=== PATIENT | female | born 1940 | race Caucasian/White ===

== ENCOUNTER 2016-03-17 06:30 | Day surgery (SDC) | payer MEDICARE ==
[~2016-03-17] VITALS: Ht 170.2 cm; Wt 91.4 kg
[~2016-03-17 06:30] MED LIST: CALC-140 PO; FLUT16SP NS; INSU100V7 SUBQ; LABE300T PO; LEVO75TA36 PO; LIP40 PO; NITR1PAT5 TD; UBID1CAP59 PO; VITA400C64 PO; ZYL100 PO; [UNRECOGNIZED DRUG - CODE] PO; vitamin c
[2016-03-17] MEDS ORDERED: Propofol 10,000 mCg/mL 20 mL Inj ONE (06:31)
[2016-03-17] MEDS ORDERED: fentaNYL-PF 50 mCg/mL 2 mL Inj ONE (06:31)
[2016-03-17 07:08] VITALS: BP 155/66; PULSE 64; RESP 16; O2SAT 97
[2016-03-17] MEDS: Lactated Ringer's 1,000 ML IV SCH ×2 (07:30→08:00)
[2016-03-17] MEDS ORDERED: HYDROcodone-APAP 5-325 mg Tablet PO PRN (08:30)
--- NOTE | 2016-03-17 08:50 | PCM.HPANE ---
Patient Data Surgeon Admitting Provider: Attending Provider:Zeferino Wahl DO Primary Care Physician:Oneil Arredondo MD Other Provider:Dick Florian Anesthesia Reason for Visit Left Carpal Tunnel Syndrome Ht/WT & BMI Height (Feet): 5 Height (Inches): 7 Weight (Kilograms): 91.4 Body Mass Index 31.00 Allergies Coded Allergies: JORI Inhibitors (Verified Allergy, Unknown, 12/08/14) aspirin (Verified Adverse Reaction, Intermediate, GI sensative, 12/08/14) Past Anesthesia History Anesthesia History: Denies:: Abnormal Airway, Anesthesia Reactions, Difficult Intubation, Fam Anesthesia Reaction Diabetes History Hx Diabetes?: Yes Type of Diabetes: Type II Glycemic Control: Insulin Dependent Current Bedside Blood Glucose: 213 MRSA MRSA: No Medications Hypertension Medication: Yes Home Meds Incl Beta Teresita: Yes Date Beta Teresita Taken: Mar 17, 2016 Time Beta Teresita Taken: 529 Reported Medications Vitamin E Mixed (Vitamin E)400 Unit Vfxvwnq961 Unit PO DAILY 30 Days 03/15/16 [vitamin c] No Conflict CheckUnknown Dose DAILY 03/15/16 Nitroglycerin (Nitro-Dur)1 Each Patch.td241 Each TD DAILY remove at night 03/15/16 Levothyroxine (Levoxyl)75 Mcg [place]29 Mcg PO DAILY Ref 0 03/15/16 Insulin Glargine (Lantus U100 Insulin Vial)100 Unit/Ml Vial50 Unit SUBQ BID #1 VIAL Ref 0 03/15/16 Labetalol 300 Mg Jiwwwp067 Mg PO BID 03/15/16 Fluticasone Propionate (Fluticasone Propionate Nasal)16 Gm Davis.susp2 Davis NS DAILY #16 GM Ref 0 03/15/16 [place]-3/Dha/Epa/Fish Oil (Fish Oil 1,000 mg Softgel)1,000 Mg (120 Mg-180 Mg) Capsule1,000 Mg PO DAILY 03/15/16 Ubidecarenone/Vitamin E Mixed (Xht10-Gkr E 200 mg-20 Unit Sfg)200 Mg-20 Unit Capsule2 Each PO DAILY 03/15/16 Calcium Carbonate/Vitamin D3 (Calcium + Vitamin D Tablet)1 Each Tablet1 Each PO DAILY 03/15/16 Allopurinol 100 Mg Vurxrb756 Mg PO DAILY Ref 0 03/15/16 Discontinued Reported Medications Atorvastatin (Lipitor)40 Mg Lgshwi11 Mg PO DAILY Ref 0 03/15/16 Fluticasone Propionate (Fluticasone Propionate Nasal)16 Gm Davis.susp2 Davis NS BID PRN For Congestion #16 GM Ref 0 11/27/15 Atorvastatin (Lipitor)40 Mg Uwfvro23 Mg PO DAILY Ref 0 11/27/15 Nitroglycerin (Nitro-Dur)1 Ea Patch1 Ea TD DAILY 12/05/14 Labetalol 300 Mg Rebats625 Mg PO BID 12/05/14 Calcium Citrate/Vitamin D3 (Calcium Citrate with D Tablet)1 Each Tablet1 Each PO DAILY 12/05/14 Ascorbic Acid (Vitamin C)1,000 Mg Tab.chew1,000 Mg PO DAILY #30 TABLET Ref 0 06/24/14 Vitamin E Acetate (Vitamin E)400 Unit Kjwrkrx393 Unit PO DAILY 06/04/14 Levothyroxine (Levoxyl)75 Mcg Xetxbi95 Mcg PO DAILY 30 Days Ref 0 06/04/14 Insulin Glargine (Lantus U100 Insulin Vial)100 Unit/Ml Vial40 Unit SUBQ BID #1 VIAL Ref 0 06/04/14 [place]-3 Fatty Acids (Fish Oil)300 Mg Alvuhfa727-8,000 Mg PO DAILY 06/04/14 [Coq10] No Conflict Oncuw650 Mg PO 2 TABS DAILY(400 TOT 05/20/10 Discontinued Scripts Prednisone (PredniSONE)10 Mg Dumnxc39 Mg PO DAILY #15 TABLET Ref 0 Prov:Bambi Holm MD 11/29/15 Allopurinol 300 Mg Vzgkuf391 Mg PO DAILY #30 TABLET Ref 0 Prov:Bambi Holm MD 11/29/15 Ferrous Sulfate (Feosol)325 Mg [place]050 Mg PO DAILYWM #30 TABLET Prov:Bambi Holm MD 11/29/15 Clindamycin 300 Mg Duxvfnf456 Mg PO TID INFECTION #15 CAPSULE Ref 0 Prov:Judi Ellis S DPM 11/29/15 Hydrocodone-Acetaminophen 5-325 mg 1 Each Tablet1 Tablet PO Q4H PRN For Pain # 20 TABLET Ref 0 Prov:Michael Ellisa S DPM 11/29/15 History History of ENT Problems?: No HEENT History: Positive for:: Cataracts (surgery bilateral) Hearing Problem Denies:: Abnormal Airway Difficult Intubation Dysphagia Glaucoma Sinus Problem TMJ Hx of Heart Problems?: Yes Cardiovascular History: Positive for:: Cardiac Surgery (cardiac stent 2013) Chest Pain (angina- uses patches daily) Hypertension Denies:: AICD Congestive Heart Failure Edema Heart Murmur Irregular Heartbeat Pacemaker Thrombophlebitis Valvular Heart Disease Hx of Respiratory Problem?: Yes Respiratory History: Denies:: Asthma (asthma as child, outgrown) COPD Chest Surgery Dyspnea Emphysema Hemoptysis Oxygen Administration Pneumonia Tuberculosis Use of C-PAP Machine Hx Neurologic Problems?: Yes Neurological History: Positive for:: Headaches (related to arthritis neck) Denies:: Alzheimer's Disease CVA Dementia Dizziness Multiple Sclerosis Parkinson's Disease Seizures TIA Hx of GI Problems?: No Gastrointestinal History: Denies:: Diverticulitis Gastroesphageal Reflux Gastrointestinal Bleeding Heartburn Hepatitis Hiatal Hernia Rectal Bleeding Hx of Problems?: Yes Genitourinary History: Positive for:: Urinary Tract Infection Denies:: HX of Hemodialysis Kidney Stones HX of Peritoneal Dialysis: No Other Pertinent History: 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 Skin History: Denies:: History Skin Disorders? Pressure Ulcers Hx Musculoskeletal Problems?: Yes Musculoskeletal History: Positive for:: Back Injury (chronic neck ) Musculoskeletal Trauma (left carpal tunnel current admission problem) Osteoarthritis Denies:: Fibromyalgia Joint Replacement Myasthenia Gravis Hx of Psycho/Social Problems?: No Psycho Social History: Denies:: Anxiety Bipolar Disorder Hx Depression Suicide Attempt Hx Surgeries?: Yes (hysterectomy, back) Hx Any Other Health Problems?: Yes Other History: Positive for:: Hospitalization (stents) Thyroid Disease Denies:: Cancer History Blood Transfusions: Positive for:: Accept Blood Products? Blood Transfusions (related to chronic anemia, last infusion year ago) Denies:: Blood Transfuse Reaction Hx Diabetes: YesBedside Blood Glucose: 213 Hx Alcohol Use: NoHx Substance Use: No Smoking Status: Never Smoker Have You Smoked inLast 12 mo: No Stop/Bang S-Snoring: Do You Snore Loudly: No T-Tired: feel tired, fatigued: Yes O-Obsered: Observed not breath: No P-Blood Pressure: treated: No B- Body Mass Index > 35 kg/m2: No A- Age over 50: Yes N- Neck Large Circumference: No G- Gender Male: No JOSÉ Total Score: 2 Risk Assessment Category Category 1A: Patient has history of documented sleep apnea, and HAS NOT received any narcotic, sedative or anesthesia administration during this stay. Category 1B: Patient has history of documented sleep apnea, and HAS received any narcotic , sedative or anesthesia administration during this stay Category 2: Patient has SUSPECTED Obstructive Sleep Apnea, and HAS received any narcotic , sedative or anesthesia administration during this stay. Category 3: Patient has SUSPECTED Obstructive Sleep Apnea and HAS NOT received narcotic, sedative or anesthesia administration during this stay. Category 4: Outpatient in Procedural Areas with known sleep apnea or who screen positive for High Risk via the STOP/BANG questionnaire. Exam Exam Vital Signs Vital Signs Date Time Temp Pulse Resp B/P Pulse Ox O2 Delivery O2 Flow Rate FiO2 03/17/16 07:08 36.0 64 16 155/66 97 Room Air General Appearance: Alert, Oriented X3, Cooperative, No Acute Distress HEENT/AIRWAY: MP 2 Lungs: Clear to Auscultation Heart: Exam Unremarkable Meds/Labs/Diagnostics Admission Meds Current Medications Lactated Ringer's (Lr) 1,000 ml @ 120 mls/hr Q8H20M IV Last administered on t 07:30; Start 03/17/16 at 05:00; Stop 03/17/16 at 13:19 Bedside Blood Glucose: 213 Plan Impression Patient chart reviewed, patient interviewed and anesthestic plan with risks, benefits, and alternatives discussed, and informed consent obtained. NPO Status: 0530 WATER WITH MEDS ASA Physical Status: ASA3 Severe Disease (cad) Anesthetic Plan: Regional Block ([place]) Bene/Risks/Altern/Consents: Yes HP Complete Prior to Induction: Yes Bhavesh Sexton MD Mar 17, 2016 07:36
[2016-03-17] MEDS ORDERED: Lactated Ringer's 500 ML IV PRN (08:51)
[2016-03-17] MEDS ORDERED: Lactated Ringer's 1,000 ML IV SCH (08:51)
[2016-03-17] MEDS ORDERED: Ondansetron 2 mg/mL 2 mL Inj IVPUSH PRN (08:55)
[2016-03-17] MEDS ORDERED: EPHEDrine Sulfate 50 mg/mL Inj IVPUSH PRN (08:55)
[2016-03-17] MEDS ORDERED: Phenylephrine 10,000 mCg/mL Inj IVPUSH PRN (08:55)
[2016-03-17] MEDS ORDERED: MetoCLOpramide 5 mg/mL 2 mL Inj IVPUSH PRN (08:55)
[2016-03-17] MEDS ORDERED: Dexamethasone 4 mg/mL Inj IVPUSH PRN (08:55)
[2016-03-17] MEDS ORDERED: Lidocaine 1%-Epi 1:100,000 20 mL Inj INFILTRATE ONE (08:55)
[2016-03-17] MEDS ORDERED: fentaNYL-PF 50 mCg/mL 2 mL Inj IVPUSH PRN (08:55)
[2016-03-17 09:08] VITALS: BP 143/58; PULSE 62; RESP 16; O2SAT 94
--- NOTE | 2016-03-17 09:16 | PCM.ANEP2 ---
Post Anesthesia Evaluation ASA/CMS Post Anesthesia VS in Patient's Normal Range?: Yes Resp Stable; Airway Patent?: Yes CV Function & Hydration Stable: Yes Mental Status Recovered?: Yes Pain control Satisfactory?: Yes N/V Control Satisfactory?: Yes Bhavesh Sexton MD Mar 17, 2016 09:16
[2016-03-17 09:44] VITALS: BP 131/50; PULSE 58; RESP 16; O2SAT 100
--- NOTE | 2016-03-17 23:11 | OP ---
[address] [address] OPERATIVE REPORT PATIENT: OLIVIA CORONADO : 1940 MR#: [id number] ADMIT: 03/17/2016 JOB ID: [id number] DATE OF SURGERY: 03/17/2016 DATE OF SURGERY: PREOPERATIVE DIAGNOSIS(ES): Left carpal tunnel syndrome. POSTOPERATIVE DIAGNOSIS(ES): Left carpal tunnel syndrome. PROCEDURE: Left open carpal tunnel release. SURGEON: Zeferino Wahl D.O. ANESTHESIA: [place] block. HISTORY: The patient is a pleasant 75-year-old female that presented with a longstanding history of left hand pain and paresthesias. She was diagnosed with carpal tunnel syndrome and has failed detailed conservative treatment with nighttime bracing. With the findings on electrodiagnostic studies, I discussed with the patient the risks, benefits, alternatives and indications to proceed with a left open carpal tunnel release. She understood the risks include, but are not limited to, neurovascular injury, tendon injury, infection, failure to resolve the patient of her preoperative symptoms, stiffness, persistent pain, all of which would require further intervention. The patient had all questions answered. Consent was signed and placed in the chart. PROCEDURE IN DETAIL: The patient was brought to the operative suite and placed supine on the operating room table. Surgical time-out was performed, everyone in the room was in agreement. After appropriate anesthesia was obtained, the left upper extremity was then prepped and draped in sterile fashion. A standard 2 cm longitudinal incision was made in line with the radial aspect of the ring finger and the ulnar aspect of palmaris longus. The incision was kept distal to the wrist crease and proximal to Rodriguez's cardinal line. Subcutaneous tissues were dissected, bipolar electrocautery utilized to maintain hemostasis throughout the procedure. The palmar fascia was first identified and incised longitudinally in line with the skin incision, followed by exposure of the underlying transverse carpal ligament. The transverse carpal ligament was then released in its entirety to include the distal extent of the antebrachial fascia. Copious irrigation was performed, followed by closure of skin with 5-0 nylon in simple interrupted fashion. The patient was then placed in a bulky soft dressing. ESTIMATED BLOOD LOSS: 1 cc. COMPLICATIONS: None. DISPOSITION: The patient tolerated the procedure well. Anesthesia was reversed and the patient was transferred back to recovery. POSTOPERATIVE PLAN: The patient will follow up in the office in two weeks. Will remove the patient's sutures at that time and have her start working on range of motion and scar mobilization.
== END 2016-03-17 23:59 | disposition home or self-care (01) ==
LOC: SAS 06:30
PROVIDERS: ATTEND Orthopaedic Surgery
DX: G56.02 Carpal tunnel syndrome, left upper limb (principal); E11.9 Type 2 diabetes mellitus without complications; Z79.4 Long term (current) use of insulin; I25.119 Atherosclerotic heart disease of native coronary artery with unspecified angina pectoris; Z95.5 Presence of coronary angioplasty implant and graft; I12.9 Hypertensive chronic kidney disease with stage 1 through stage 4 chronic kidney disease, or unspecified chronic kidney disease; N18.9 Chronic kidney disease, unspecified; E03.9 Hypothyroidism, unspecified
CPT/HCPCS: 64721; J2250; J7120